=== PATIENT | male | born 1975 | race Caucasian/White ===

== ENCOUNTER 2017-07-01 01:11 | Inpatient (IN) | payer OTHER ==
[~2017-07-01] VITALS: Ht 180.3 cm; Wt 76.3 kg
[~2017-07-01 01:11] MED LIST: CIPROFLOXIN HC2.5 M1 OTIC; CYCLOBENZAPRINE5 MG PO; NOHOMEMEDICATIONS; NORCO 5-325 TA1 EACH PO; TORADOL 10 MG T10 MG PO
[2017-07-01 01:17] VITALS: BP 131/93
[2017-07-01 01:58] LABS: ABSOLUTE BASOPHILS 0.1 thou/uL (0.0-0.2); ABSOLUTE EOSINOPHILS 0.5 thou/uL (0.0-0.7); ABSOLUTE LYMPHOCYTES 2.1 thou/uL (0.8-5.3); ABSOLUTE MONOCYTES 0.6 thou/uL (0.0-1.2); ABSOLUTE NEUTROPHILS 4.9 thou/uL (1.6-8.1); BASOPHILS 1.3 %; EOSINOPHILS 5.9 %; HEMATOCRIT 49.1 % (42.0-52.0); HEMOGLOBIN 16.5 gm/dL (14.0-18.0); LYMPHOCYTES 25.2 %; MCH 29.9 pg (26.0-34.0); MCHC 33.6 g/dL (28.0-37.0); MCV 89.1 fL (80.0-100.0); MONOCYTES 7.9 %; MPV 8.1 fl. (7.2-11.1); NUCLEATED RBCS 0 /100WBC; PLATELET COUNT* 238 thou/uL (150-400); POLYS 59.7 %; RBC 5.52 mil/uL (4.50-6.00); RDW-CV 13.9 % (10.5-14.5); WBC 8.2 thou/uL (4.0-11.0)
[2017-07-01 02:14] LABS: CALCIUM 8.8 mg/dL (8.5-10.1); CREATININE 0.9 mg/dL (0.6-1.3); POTASSIUM 3.8 mmol/L (3.5-5.1)
[2017-07-01 02:19] LABS: ALBUMIN 3.7 g/dL (3.4-5.0); TOTAL BILIRUBIN 0.5 mg/dL (<0.1-1.0); TOTAL PROTEIN 6.9 g/dL (6.4-8.2)
[2017-07-01 03:05] VITALS: BP 112/69
[2017-07-01 03:25] VITALS: BP 121/86
[2017-07-01 03:34] LABS: URINE BILIRUBIN NEGATIVE (Negative); URINE BLOOD NEGATIVE (Negative); URINE CLARITY CLEAR; URINE COLOR YELLOW; URINE GLUCOSE-RANDOM TRACE (Negative); URINE KETONES TRACE (Negative); URINE LEUKOCYTES-REFLEX NEGATIVE (Negative); URINE NITRITE-REFLEX NEGATIVE (Negative); URINE PROTEIN TRACE (Negative); URINE SPECIFIC GRAVITY 1.025 (1.005-1.030)
--- NOTE | 2017-07-01 06:37 | NUR ---
Admit at 0310. Alert and oriented x 4. He has L arm cellulitis. He had rocephin and vanco in er.He is up independently. Vitals are stable
[2017-07-01 08:11] VITALS: BP 137/85
--- NOTE | 2017-07-01 11:07 | NUR ---
WOUND NURSE: PATIENT SEEN TO ADDRESS PRURITIC RASH ON THE LEFT UPPER ARM. PRESENTS A RED RASH AND WITH MULTIPLE RUPTURED AND INTACT VESICLES DRAINING CLEAR YELLOW DRAINAGE. AFFECTED AREA MEASURES 26 X 15 CM. CLEANSED WITH SOAP AND WATER, RINSED WITH WATER, THEN PATTED DRY. APPLIED XEROFORM GAUZE UNDER ABDS, THEN WRAPPED WITH KERLEX ROLL GAUZE AND SECURED WITH TAPE. DRESSING TO BE CHANGED DAILY AND NEEDED. INSTRUCTED ON REPORTABLE SIGNS AND SYMPTOMS, MEASURES TO PROMOTE HEALNG AND PREVENT FURTHER COMPLICATIONS. PATIENT STATES HE UNDERSTANDS.
[2017-07-01 15:41] VITALS: BP 130/84
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
--- NOTE | 2017-07-01 16:34 | NUR ---
PATIENT REMAINS ALERT AND ORIENTED. DENIES PAIN. SOLUMEDROL AND BENADRYL STARTED TODAY- PROVIDED SOME RELIEF. WOUND CARE CONSULT. AMBULATES AD MADINA. TOLERATING MEALS. AFEBRILE. VSS. IVF AND IVABX INFUSING ORDERED. CALL LIGHT WITHIN REACH. WILL CONTINUE TO MONITOR.
[2017-07-01 20:10] VITALS: BP 137/86
--- NOTE | 2017-07-01 21:43 | NUR ---
PATIENT NOTIFIED NURSING STAFF THAT HE NEEDED TO LEAVE DUE TO A FAMILY EMERGENCY. I WENT TO TALK TO THE PATIENT ABOUT THE IMPORTANCE OF HIM RECEIVING HIS ANTIBIOTICS AND HIS OVERALL MEDICAL CARE. PATIENT STATES "I UNDERSTAND. IT'S NOTHING THE STAFF HAVE DONE. YOU GUYS HAVE BEEN GREAT. MY GIRLFIRJEF HASNT ANSWERED THE PHONE IN FOUR TO FIVE HOURS SO I HAVE TO GO CHECK ON HER." I ASKED THE PATIENT IF ANYONE ELSE COULD CHECK ON HER SO THAT HE COULD STAY. HE STATED "MY MOM WENT OVER AND THERE WASNT AN ANSWER SO I NEED TO CHECK MYSELF." HE ALSO STATED THAT HE WOULD PROBABLY COME BACK. I INFORMED HIM THAT IF HE LEFT AMA HE WOULD HAVE TO BE READMITTED THROUGH THE ER. PATIENT SIGNED AMA PAPERS AT 2104. IV ACCESS REMOVED. PHYSICIAN NOTIFIED.
== END 2017-07-01 21:05 | disposition left against medical advice (07) | DRG 603 ==
LOC: M.ERS 01:11 → M.TBA-ER 02:12 → M.ORTHSURG 03:10
PROVIDERS: Emergency Medicine Emergency Medical Services; ADMIT Internal Medicine
DX: L03.116 Cellulitis of left lower limb (principal); R65.10 Systemic inflammatory response syndrome (SIRS) of non-infectious origin without acute organ dysfunction; L30.9 Dermatitis, unspecified; F17.210 Nicotine dependence, cigarettes, uncomplicated; Z53.21 Procedure and treatment not carried out due to patient leaving prior to being seen by health care provider

== ENCOUNTER 2017-07-03 17:50 | Emergency (ER) | payer OTHER ==
[~2017-07-03] VITALS: Ht 177.8 cm; Wt 77.1 kg
[2017-07-03 18:00] VITALS: BP 127/90
[2017-07-03] MEDS ORDERED: BACTRIM DS TAB1 EACH PO (18:14)
[2017-07-03] MEDS ORDERED: KEFLEX500 M1 PO (18:14)
[2017-07-03] MEDS ORDERED: TRIAMCINOLONE A80 G2 TOP (18:14)
== END 2017-07-03 18:30 | disposition home or self-care (01) ==
LOC: M.ERS 17:50
DX: L03.114 Cellulitis of left upper limb (principal); L23.7 Allergic contact dermatitis due to plants, except food; F17.210 Nicotine dependence, cigarettes, uncomplicated

== ENCOUNTER 2017-09-13 21:11 | Emergency (ER) | payer OTHER ==
[~2017-09-13] VITALS: Ht 177.8 cm; Wt 79.4 kg
[~2017-09-13 21:11] MED LIST changes: +BACTRIM DS TAB1 EACH PO; +KEFLEX500 M1 PO; +TRIAMCINOLONE A80 G2 TOP
[2017-09-13] MEDS ORDERED: AUGMENTIN 875-1 EACH PO (21:29)
[2017-09-13] MEDS ORDERED: IBUPROFEN 800800 M1 PO (21:29)
[2017-09-13 21:39] VITALS: BP 113/82
== END 2017-09-13 21:40 | disposition home or self-care (01) ==
LOC: M.ERS 21:11
DX: H66.91 Otitis media, unspecified, right ear (principal); F17.210 Nicotine dependence, cigarettes, uncomplicated

== ENCOUNTER 2019-07-20 18:49 | Emergency (ER) | payer OTHER ==
[~2019-07-20] VITALS: Ht 177.8 cm; Wt 77.1 kg
[~2019-07-20 18:49] MED LIST changes: +AUGMENTIN 875-1 EACH PO; +IBUPROFEN 800800 M1 PO
[2019-07-20] MEDS ORDERED: CIPROFLOXIN HC2.5 M1 OPHTHALMIC (20:07)
[2019-07-20] MEDS ORDERED: HYDROCODON-ACE1 EAC8 PO (20:07)
[2019-07-20 20:30] VITALS: BP 117/73
== END 2019-07-20 20:31 | disposition home or self-care (01) ==
LOC: M.ERS 18:49
DX: S05.91XA Unspecified injury of right eye and orbit, initial encounter (principal); F17.210 Nicotine dependence, cigarettes, uncomplicated; W18.39XA Other fall on same level, initial encounter; Y93.89 Activity, other specified; Y92.89 Other specified places as the place of occurrence of the external cause; Y99.8 Other external cause status

== ENCOUNTER 2020-07-30 17:02 | Emergency (ER) | payer OTHER ==
[~2020-07-30] VITALS: Ht 177.8 cm; Wt 79.4 kg
[~2020-07-30 17:02] MED LIST changes: +CIPROFLOXIN HC2.5 M1 OPHTHALMIC; +HYDROCODON-ACE1 EAC8 PO
[2020-07-30] MEDS ORDERED: NORCO5 PO (19:13)
[2020-07-30] MEDS ORDERED: NAPROSYN500 MG PO (19:13)
[2020-07-30 19:25] VITALS: BP 132/78
== END 2020-07-30 19:25 | disposition home or self-care (01) ==
LOC: M.ERS 17:02
DX: M54.5 Low back pain (principal); F17.210 Nicotine dependence, cigarettes, uncomplicated

== ENCOUNTER 2020-08-02 21:07 | Emergency (ER) | payer OTHER ==
[~2020-08-02] VITALS: Ht 177.8 cm; Wt 79.4 kg
[~2020-08-02 21:07] MED LIST changes: +NAPROSYN500 MG PO; +NORCO5 PO
[2020-08-02] MEDS ORDERED: NORCO5 PO (22:14)
[2020-08-02] MEDS ORDERED: MEDROLDOSEPACK PO (22:14)
[2020-08-02 22:36] VITALS: BP 118/73
== END 2020-08-02 22:37 | disposition home or self-care (01) ==
LOC: M.ERS 21:07
DX: M16.0 Bilateral primary osteoarthritis of hip (principal); M54.42 Lumbago with sciatica, left side; F17.210 Nicotine dependence, cigarettes, uncomplicated